=== PATIENT | female | born 1995 ===

== ENCOUNTER 2021-04-15 10:57 | Outpatient (CLI) | payer OTHER | END 2021-04-15 12:26 | disposition home or self-care (01) | LOC: PRENATAL 10:57 | PROVIDERS: ATTEND Obstetrics & Gynecology Maternal & Fetal Medicine | DX: O35.0XX1 Maternal care for (suspected) central nervous system malformation in fetus, fetus 1 (principal); O35.3XX1 Maternal care for (suspected) damage to fetus from viral disease in mother, fetus 1; O98.512 Other viral diseases complicating pregnancy, second trimester; O24.410 Gestational diabetes mellitus in pregnancy, diet controlled; O26.842 Uterine size-date discrepancy, second trimester; Z36.89 Encounter for other specified antenatal screening; Z3A.24 24 weeks gestation of pregnancy ==

== ENCOUNTER 2021-05-28 10:39 | Outpatient (CLI) | payer OTHER | END 2021-05-28 11:59 | disposition home or self-care (01) | LOC: PRENATAL 10:39 | PROVIDERS: ATTEND Obstetrics & Gynecology Maternal & Fetal Medicine | DX: O09.219 Supervision of pregnancy with history of pre-term labor, unspecified trimester (principal); O26.849 Uterine size-date discrepancy, unspecified trimester; O24.419 Gestational diabetes mellitus in pregnancy, unspecified control; O34.30 Maternal care for cervical incompetence, unspecified trimester; Z3A.31 31 weeks gestation of pregnancy ==